=== PATIENT | female | born 1995 | race Caucasian/White ===

== ENCOUNTER 2018-10-16 13:21 | Emergency (ER) | payer OTHER ==
[2018-10-16 14:51] LABS: ADD MAN DIFF? NO
[2018-10-16 14:52] LABS: WHITE BLOOD COUNT 5.6 10^3/ul (4.8-10.8)
[2018-10-16 14:52] LABS: BASOPHILS % 0.4 % (0.0-2.0); EOSINOPHILS # 0.1 10^3/ul (0.0-0.5); EOSINOPHILS % 1.4 % (0.0-7.0); HEMATOCRIT 40.3 % (37.0-47.0); HEMOGLOBIN 13.7 g/dl (12.0-16.0); LYMPHOCYTES # 1.3 10^3/ul (0.8-2.9); LYMPHOCYTES % 22.4 % (15.0-51.0); MEAN CORPUSCULAR HEMOGLOBIN 32.1 pg (29.0-33.0); MEAN CORPUSCULAR VOLUME 94.4 fl (82.0-101.0); MEAN PLATELET VOLUME 12.8 fl (7.4-10.4); MONOCYTE # 0.6 10^3/ul (0.3-0.9); MONOCYTES % 9.9 % (0.0-11.0); NEUTROPHIL # 3.7 10^3/ul (1.6-7.5); NEUTROPHILS % 65.7 % (39.0-77.0); PLATELET COUNT 189 10^3/UL (140-415); RED BLOOD COUNT 4.27 10^6/ul (4.20-5.40); RED CELL DISTRIBUTION WIDTH 11.8 % (11.5-14.5)
[2018-10-16] MEDS: SOD CHLORIDE 0.9% 1,000 ML IV (14:58)
[2018-10-16] MEDS: CEFTRIAXONE 1 GM/50 ML (PMX) 50 ML IVPB (14:58)
[2018-10-16] MEDS: DEXAMETHASONE 10 MG/ML 1 ML INJ IV (14:58)
[2018-10-16] MEDS: KETOROLAC 30 MG INJ IV (14:59)
[2018-10-16 15:56] LABS: MONOTEST Positive (NEG)
[2018-10-16 16:00] LABS: ALANINE AMINOTRANSFERASE 17 IU/L (13-69); ALBUMIN 3.7 g/dl (3.3-4.9); ALBUMIN/GLOBULIN RATIO 1.05; ALKALINE PHOSPHATASE 60 IU/L (42-121); ANION GAP 9 (5-13); ASPARTATE AMINO TRANSFERASE 23 IU/L (15-46); BILIRUBIN,INDIRECT 0.3 mg/dl (0-1.1); BILIRUBIN,TOTAL 0.3 mg/dl (0.2-1.3); BLOOD UREA NITROGEN 14 mg/dl (7-20); CALCIUM 9.4 mg/dl (8.4-10.2); CARBON DIOXIDE 28 mmol/L (21-31); CHLORIDE 104 mmol/L (97-110); CREATININE 0.93 mg/dl (0.44-1.00); Estimated GFR > 60 mL/min (>60); GLUCOSE 87 mg/dl (70-220); POTASSIUM 4.3 mmol/L (3.5-5.1); SODIUM 141 mmol/L (135-144); TOTAL PROTEIN 7.2 g/dl (6.1-8.1)
== END 2018-10-16 16:25 | disposition home or self-care (01) ==
LOC: FTE 13:21
DX: J02.9 Acute pharyngitis, unspecified (principal)
CPT/HCPCS: 36415; 80053; 81025; 85025; 86308; 96365; 96375; 99284-25